=== PATIENT | male | born 1955 | race Two or more races ===

== ENCOUNTER 2016-06-19 07:22 | Inpatient (IN) | payer MEDICAID ==
[~2016-06-19] VITALS: Ht 162.6 cm; Wt 69.9 kg
[~2016-06-19 07:22] MED LIST: AMI200T PO; ASPI81CH43 PO; ATOR20TA50 PO; Atenolol PO; CIPR-173 PO; DOCU100C8 PO; FER325T PO; FURO40TA4 PO; LIS5T PO; METF-312 PO; METR500T PO; NIT04P TD; [UNRECOGNIZED DRUG - OTHER] VI
[2016-06-19 08:37] LABS: Basophils # (auto) 0 uL; Basophils % (auto) 0.3 % (0.0-2.0); DEFINITIVE VIEW TRANSMISSION; Eosinophils # (auto) 0.2 uL; Eosinophils % (auto) 2.8 % (0.0-7.0); Hematocrit 42.3 % (41.0-53.0); Hemoglobin 13.8 g/dL (13.5-17.5); Lymphocytes # (auto) 2.5 uL; Lymphocytes % (auto) 30.2 % (10.0-50.0); Mean Corpuscular Hemoglobin 26.6 pg (28.0-32.0); Mean Corpuscular Hgb Conc. 32.6 g/dL (32.0-36.0); Mean Corpuscular Volume 81.6 fL (80.0-100.0); Mean Platelet Volume 10.1 fL (7.4-10.4); Monocytes # (auto) 0.6 uL; Monocytes % (auto) 6.9 % (0.0-12.0); Neutrophils # (auto) 4.9 uL; Neutrophils % (auto) 59.8 % (37.0-80.0); Platelet Count (auto) 276 10^3/uL (140-450); Red Cell Distribution Width 16.2 % (11.6-16.0); White Blood Cell 8.2 10^3/uL (4.4-10.8)
[2016-06-19 09:04] LABS: Albumin 3.6 g/dL (3.4-5.0); BUN/Creatinine Ratio 25.9; Bilirubin, Total 0.4 mg/dL (0.2-1.0); Calcium 8.9 mg/dL (8.5-10.1); Potassium 4.5 mmol/L (3.5-5.1); Total Protein 7.2 g/dL (6.4-8.2)
[2016-06-19 10:08] LABS: Urine Bilirubin Negative (Negative); Urine Blood TRACE /uL (Negative); Urine Color Yellow (Yellow); Urine Glucose TRACE mg/dL (Normal); Urine Ketone Negative (Negative); Urine Mucus FEW (None Seen); Urine Nitrite Negative (Negative); Urine RBC 3 /hpf (0 - 3); Urine Urobilinogen Normal (Negative)
[2016-06-19] MEDS ORDERED: FUROSEMIDE 20 MG/2 ML VIAL IV ONE (10:15)
[2016-06-19] MEDS ORDERED: DEXTROSE (50%) 50ML SYRG IV PRN (14:45)
[2016-06-19] MEDS ORDERED: NITROGLYCERIN 0.4 MG SL TAB SL PRN (14:45)
[2016-06-19] MEDS ORDERED: HYDROcodone-ACET 5/325MG TAB PO PRN (14:45)
[2016-06-19] MEDS ORDERED: MORPHINE SULF INJ 2 MG/ML SYRINGE 1ML IV PRN ×2 (14:45)
[2016-06-19] MEDS ORDERED: ONDANSETRON HCL 4 MG/2 ML VIAL IV PRN (14:45)
[2016-06-19] MEDS ORDERED: ASPirin 81 mg TAB PO ONE (15:00)
[2016-06-19] MEDS ORDERED: PANTOPRAZOLE 40 MG TAB PO ONE (15:00)
[2016-06-19] MEDS: ACCU-CHEK COMFORT CURVE STRIP VI SCH ×2 (17:00→22:17)
[2016-06-19] MEDS: InsuLIN REG 1unit/0.01ml Soln (100units/ml) SC SCH ×2 (17:00→22:26)
[2016-06-19 20:00] VITALS: BP 127/60
[2016-06-19] MEDS ORDERED: ATORVASTATIN 20 MG TAB PO SCH (22:00)
[2016-06-19] MEDS: METOPROLOL TARTRATE 25 MG TAB PO SCH (22:17)
[2016-06-19 23:23] VITALS: BP 121/60
[2016-06-20 05:32] VITALS: BP 121/66
[2016-06-20] MEDS: InsuLIN REG 1unit/0.01ml Soln (100units/ml) SC SCH ×2 (06:37→11:52)
[2016-06-20] MEDS: ACCU-CHEK COMFORT CURVE STRIP VI SCH ×2 (06:38→11:44)
[2016-06-20 08:00] VITALS: BP 135/71
[2016-06-20 08:40] VITALS: BP 135/71
[2016-06-20] MEDS: METOPROLOL TARTRATE 25 MG TAB PO SCH (09:31)
[2016-06-20] MEDS ORDERED: PANTOPRAZOLE 40 MG TAB PO SCH (10:00)
[2016-06-20] MEDS ORDERED: ASPirin 81 mg TAB PO SCH (10:00)
[2016-06-20] MEDS ORDERED: GABAPENTIN 300 MG CAP PO ONE (11:00)
[2016-06-20 12:21] VITALS: BP 129/67
[2016-06-20 14:57] VITALS: BP 129/67
[2016-06-20] MEDS ORDERED: GABAPENTIN 300 MG CAP PO SCH (22:00)
== END 2016-06-20 15:30 | disposition home or self-care (01) | DRG 813 ==
LOC: ER 07:32 → TELE 07:33 → EDUNIT# 07:33 → TELE-E-ADS 17:48 → TELE-EAST 18:00
PROVIDERS: ADMIT Internal Medicine; ATTEND Internal Medicine
DX: M96.89 Other intraoperative and postprocedural complications and disorders of the musculoskeletal system (principal); E11.9 Type 2 diabetes mellitus without complications; Y71.8 Miscellaneous cardiovascular devices associated with adverse incidents, not elsewhere classified; Y83.2 Surgical operation with anastomosis, bypass or graft as the cause of abnormal reaction of the patient, or of later complication, without mention of misadventure at the time of the procedure; E78.5 Hyperlipidemia, unspecified; R74.8 Abnormal levels of other serum enzymes; I25.10 Atherosclerotic heart disease of native coronary artery without angina pectoris; Z82.49 Family history of ischemic heart disease and other diseases of the circulatory system; Y92.89 Other specified places as the place of occurrence of the external cause; Z83.3 Family history of diabetes mellitus; Z95.1 Presence of aortocoronary bypass graft; I25.2 Old myocardial infarction
CPT/HCPCS: 36415; 71010; 80053; 81001; 82962; 83036; 84484; 84550; 85025; 93005; 93971; 94761; 96374; J1815

== ENCOUNTER 2024-06-22 07:45 | Emergency (ER) | payer MEDICARE, MEDICAID ==
[~2024-06-22] VITALS: Ht 162.6 cm; Wt 73.0 kg
[~2024-06-22 07:45] MED LIST changes: -AMI200T PO; +ASPI1TAB20 PO; +CARV-214 PO; -CIPR-173 PO; +CLOP75TA28 PO; +DEXT1SYP9 PO; +DILT180C52 PO; -DOCU100C8 PO; -FER325T PO; +GLIP10TA9 PO; +GLIP5TAB21 PO; -LIS5T PO; -METF-312 PO; +METF-370 PO; +METF-372 PO; +METO25TA5 PO; -METR500T PO; -NIT04P TD; +OMEP20TA PO; +PANT40TA2 PO; +POTA-211 PO; +SACU1TAB PO
[2024-06-22 08:10] VITALS: BP 151/71; PULSE 66; RESP 18; TEMP 97.9; O2SAT 97
[2024-06-22] MEDS ORDERED: PHEN1LIQ50 PO (08:24)
[2024-06-22] MEDS ORDERED: CEFD300C2 PO (08:24)
--- NOTE | 2024-06-22 08:25 | ED.PDOC ---
SOB-HPI HPI Comments 68-year-old male presented to the [facility] complaining of cough congestion fever for past few days in his not better the patient has a history of of CABG and stents Chief Complaint: Flu like Time Seen by MD: 07:56 Primary Care Provider: KIANA Espinosa notes: Nurses Notes, Medications, Allergies Information Source: Patient Mode of Arrival: Ambulatory Severity: Moderate Timing: Days Duration: Since onset Context: At Rest PE Risk Factors: None History of: CHF, Recent URI Modifying Factors: Laying flat Associated Signs and Symptoms: Fever, Cough, Nasal Congestion, Sore Throat If cough with SOB: Productive, White Past Medical History PAST MEDICAL HISTORY: CAD, CHF, DM, GERD, High Lipids, HTN, [place] Surgical History: CABG, Cholecystectomy, PTCA Family History Family History: Family hx of DM, Family hx of Cancer, Family hx of heart west, Family hx of HTN Social History Smoker: Non-Smoker Alcohol: Denies ETOH Use Drugs: Denies Drug Use Lives In: Home Constitutional: reports: chills, fever; denies: diaphoresis, fatigue, malaise, sweats, weakness, others EENTM: reports: nose congestion, throat pain, voice changes Respiratory: reports: cough; denies: hemoptysis, orthopnea, SOB at rest, shor tness of breath, SOB with excertion, stridor, wheezing, others Cardiovascular: denies: chest pain, dizzy spells, diaphoresis, Dyspnea on exertion, edema, irregular heart beat, left arm pain, lightheadedness, palpitations, PND, syncope, others Gastrointestinal: denies: abdomen distended, abdominal pain, blood streaked bowels, constipated, diarrhea, dysphagia, difficulty swallowing, hematemesis, melena, nausea, poor appetite, poor fluid intake, rectal bleeding, rectal pain, vomiting, others Genitourinary: denies: burning, dysuria, flank pain, frequency, hematuria, incontinence, penile discharge, penile sore, pain, testicle pain, testicle swelling, urgency, others Neurological: denies: dizziness, fainting, headache, left sided numbness, left sided weakness, numbness, paresthesia, pre-existing deficit, right sided numbness, right sided weakness, seizure, speech problems, tingling, tremors, weakness, others Musculoskeletal: denies: back pain, gout, joint pain, joint swelling, muscle pain, muscle stiffness, neck pain, others Integumetry: denies: bruises, change in color, change in hair/nails, dryness, laceration, lesions, lumps, rash, wounds, others Allergic/Immunocompromised: denies: Difficulty Healing, Frequent Infections, Hives, Itching, others Hematologic/Lymphatic: denies: anemia, blood clots, easy bleeding, easy bruising, swollen glands, others Endocrine: denies: excessive hunger, excessive sweating, excessive thirst, excessive urination, flushing, intolerance to cold, intolerance to heat, unexplained weight gain, unexplained weight loss, others Psychiatric: denies: anxiety, bipolar disorder, depression, hopeless, panic disorder, schizophrenia, sleepless, suicidal, others All Other Systems: Reviewed and Negative Physical Exam General Appearance: Mild Distress, Obese HEENT: PERRL/EOMI, Pharyngeal Erythema Neck: Carotid Bruit Respiratory: Crackles, Expiration, Inspiration, No Respiratory Distress Cardiovascular: No Edema, No JVD, No Murmur, No Gallop, Normal Peripheral Pulses, Regular Rate/Rhythm Breast Exam: Deferred Gastrointestinal: No Organomegaly, Non Tender, No Pulsatile Mass, Normal Bowel Sounds, Soft Genitalia: Deferred Pelvic: Deferred Rectal: Deferred Extremities: No calf tenderness, Normal capillary refill, Normal inspection, Normal range of motion, Non-tender, No pedal edema Neurologic: Alert, jordan man II-XII nml as Tested, No Motor Deficits, Normal Affect, Normal Mood, No Sensory Deficits Cerebellar Function: Normal Reflexes: Normal Skin: Dry, Normal Color, Warm Peripheral Pulses: 1+ carotid (R), 1+ carotid (L) Lymphatic: No Adenopathy Was a procedure done? Was a procedure done?: No Differential Dx Differential Diagnosis: Bronchitis, Sinusitis, Allergic Rhinitis, Pharyngitis, URI X-Ray, Labs, Meds, VS Vital Signs Date Time Temp Pulse Resp B/P (MAP) Pulse Ox O2 Delivery O2 Flow Rate FiO2 06/22/24 07:58 18 97 Room Air* 0 21 06/22/24 07:53 97.9 66 18 151/71 (97) 97 97.9 X-Ray, Labs, Meds, VS Comment Course in the [facility] unremarkable Patient with mostly acute bronchitis with a pharyngitis and severe cough Patient will be treated accordingly Time of 1ST Reevaluation: 08:20 Reevaluation 1ST: Unchanged Consultation: PCP Patient Education/Counseling: Diagnosis, Treatment, Prognosis, Need For Follow Up Family Education/Counseling: Diagnosis, Treatment, Prognosis, Need For Follow Up, No Family Present Departure 1 Departure Time of Disposition: 08:21 Impression: Primary Impression: Acute bronchitis Qualified Codes: J20.4 - Acute bronchitis due to parainfluenza virus Additional Impressions: CAD (coronary artery disease) Qualified Codes: I25.10 - Atherosclerotic heart disease of [place] coronary artery without angina pectoris History of myocardial infarction Disposition: 01 HOME / SELF CARE / HOMELESS Condition: Fair Additional Instructions: Push fluids and follow up with your PCP e-Prescriptions [id number] W/ APAP (Robitussin Severe Mul... [id number] mg/10Ml) 1 Liq Liq 1 LIQ PO TID for 10 Days, #300 LIQ Prov: ELSA MCKENNA MD 06/22/24 Cefdinir (Cefdinir) 300 Mg Cap 1 CAP PO BID for 10 Days, #20 CAP Prov: ELSA MCKENNA MD 06/22/24 Discharged With: Self Critical Care Note Critical Care Time?: No Stability Stability form required: No Heart Score Heart Score: Heart Score Response (Comments) Value History N/A 0 EKG N/A 0 Age >65 2 Risk Factors >3 or Hx ASHD 2 Troponin N/A 0 Total 4 ELSA MCKENNA MD Jun 22, 2024 08:25
== END 2024-06-22 08:34 | disposition home or self-care (01) ==
LOC: ER 07:45
DX: J20.9 Acute bronchitis, unspecified (principal); I25.10 Atherosclerotic heart disease of native coronary artery without angina pectoris; I25.2 Old myocardial infarction; I11.0 Hypertensive heart disease with heart failure; I50.9 Heart failure, unspecified; E11.9 Type 2 diabetes mellitus without complications; Z90.49 Acquired absence of other specified parts of digestive tract; Z95.1 Presence of aortocoronary bypass graft; Z98.890 Other specified postprocedural states